=== PATIENT | female | born 1975 | race Two or more races ===

== ENCOUNTER 2022-02-24 09:43 | Emergency (ER) | payer BC, OTHER ==
[~2022-02-24] VITALS: Ht 162.6 cm; Wt 72.7 kg
[2022-02-24 11:52] VITALS: BP 126/84
[2022-02-24] MEDS: ACETAMINOPHEN 500 MG TAB PO ONE (12:36)
[2022-02-24] MEDS ORDERED: IBUP800T27 PO (12:42)
[2022-02-24] MEDS ORDERED: METH750T22 PO (12:42)
== END 2022-02-24 12:48 | disposition home or self-care (01) ==
LOC: EDBD 09:43 → ER 09:43
DX: S46.912A Strain of unspecified muscle, fascia and tendon at shoulder and upper arm level, left arm, initial encounter (principal); S16.1XXA Strain of muscle, fascia and tendon at neck level, initial encounter; V43.52XA Car driver injured in collision with other type car in traffic accident, initial encounter; Y93.89 Activity, other specified; Y92.488 Other paved roadways as the place of occurrence of the external cause; Y99.8 Other external cause status
CPT/HCPCS: 73030

== ENCOUNTER → 2022-05-07 23:58 | Emergency (ER) | payer BC, OTHER ==
[~2022-05-07 23:58] MED LIST: IBUP800T27 PO; METH750T22 PO
== END | disposition left against medical advice (07) ==
LOC: EDUNIT# 23:51 → ER 23:58 → EDBD 23:58
DX: R51.9 Headache, unspecified (principal); Z53.21 Procedure and treatment not carried out due to patient leaving prior to being seen by health care provider